=== PATIENT | female | born 1970 | race Two or more races ===

== ENCOUNTER 2019-01-31 00:44 | Emergency (ER) | payer SELFPAY ==
[~2019-01-31] VITALS: Ht 162.6 cm; Wt 54.4 kg
[2019-01-31 00:53] VITALS: BP 106/77
== END 2019-01-31 01:18 | disposition home or self-care (01) ==
LOC: ER 00:49
DX: L03.113 Cellulitis of right upper limb (principal); Z88.5 Allergy status to narcotic agent